=== PATIENT | female | born 1960 | race Caucasian/White ===

== ENCOUNTER → 2025-04-27 12:30 | Outpatient (CLI) | payer MEDICARE, OTHER, SELFPAY ==
--- NOTE | 2025-04-27 12:34 | DI.ECHO.S_ITS ---
[facility] : : [address] : : [place] : : [id number] : : Phone: [phone] Echocardiogram Report + + :Name: [address]AL [address] Study Date: 04/27/2025 Height: 67 in : :Hospital ReadingLocation: Weight: 147 lb : : Gender: Female BSA: 1.8 m2 : :: 1960 Age: 65 yrs BP: 142/86 mmHg: :Reason For Study: MILD ELEVATION OF CARDIAC ENZYME : :Ordering Physician: LENA, : :JAMES Performed By: David Abraham : :Referring: JAMES PAREDES : + + Interpretation Summary The ejection fraction is estimated to be 55-60%. Diastolic parameters suggest probable normal left ventricular diastolic function and normal filling pressures. The right ventricle is normal in size and function. There is mild mitral regurgitation. Pulmonary artery pressures cannot be estimated because of the lack of a measurable TR jet velocity but the IVC suggests a CVP of around 3 mmHg. Procedure: A two-dimensional transthoracic echocardiogram with color flow and Doppler was performed. The study quality was technically good. There is no prior echocardiogram noted for this patient. The patient was in normal sinus rhythm during the exam. Left Ventricle: The left ventricle is normal in size. There is normal left ventricular wall thickness. There is no ventricular septal defect visualized. The ejection fraction is estimated to be 55-60%. There are no focal wall motion abnormalities. Diastolic parameters suggest probable normal left ventricular diastolic function and normal filling pressures. Right Ventricle: The right ventricle is normal in size and function. Atria: The left atrial size is normal. Right atrial size is normal. There is no Doppler evidence for an interatrial shunt. The atrial septum is aneurysmal. Mitral Valve: The mitral valve leaflets appear normal. There is no evidence of stenosis, fluttering, or prolapse. There is mild mitral regurgitation. Aortic Valve: The aortic valve is trileaflet. The aortic valve opens well. There is no aortic valve stenosis. No aortic regurgitation is present. Tricuspid Valve: The tricuspid valve leaflets are thin and pliable. There is a trace or physiologic amount of tricuspid regurgitation. Pulmonary artery pressures cannot be estimated because of the lack of a measurable TR jet velocity but the IVC suggests a CVP of around 3 mmHg. Pulmonic Valve: The pulmonic valve is not well seen, but is grossly normal. There is no pulmonic valvular regurgitation. Great Vessels: The aortic root is normal size. The ascending aorta could not be visualized. The pulmonary artery is not well visualized, but is probably normal size. The IVC is of normal diameter and collapses greater than 50% with a sniff. This suggests a low right atrial pressure of 3 mm Hg. Pericardium/ Pleura There is no pericardial effusion. There is no pleural effusion. MMode/2D Measurements & Calculations LVIDd: 5.0 cm LVOT diam: 2.1 cm LVIDs: 3.6 cm Ao root diam: 3.2 cm FS: 28.5 % Ao Arch Diam (Prox Trans): 1.9 cm EPSS: 0.48 cm IVSd: 0.72 cm LVPWd: 0.74 cm LV jacome. diameter/BSA (cm/m^2): 2.8 LV sys. diameter/BSA (cm/m^2): 2.0 LA A2 area: 14.1 cm2 RA long axis: 4.0 cm LA A4 area: 17.1 cm2 RA area: 10.9 cm2 LA length (vol): 4.3 cm RA vol: 25.4 ml LA vol: 47.7 ml RA : 14.3 ml/m2 LA vol index: 26.9 ml/m2 IVC diam: 1.7 cm RVD1 (basal): 3.1 cm RVD2 (mid): 2.0 cm TAPSE: 3.0 cm Doppler Measurements & Calculations Ao V2 max: 117.4 cm/sec LVOT Max [place]: 90.5 cm/sec Ao V2 mean: 84.4 cm/sec LV V1 max P.3 mmHg Ao max P.5 mmHg LV V1 VTI: 24.1 cm Ao mean P.1 mmHg VAMSI(I,D): 2.9 cm2 Ao V2 VTI: 28.9 cm VAMSI(V,D): 2.7 cm2 sev ratio: 0.83 VAMSI indexed to BSA (cm^2/m^2): 1.6 MV E max israel: 64.9 cm/sec TR max israel: 199.6 cm/sec MV A max [place]: 58.5 cm/sec TR max P.9 mmHg MV E/A: 1.1 PA V2 max: 90.7 cm/sec Med Peak E' [place]: 9.2 cm/sec PA V2 mean: 66.6 cm/sec E/E' med: 7.0 PA mean P.9 mmHg Lat Peak E' [place]: 9.3 cm/sec PA pr(Accel): 46.5 mmHg E/E' lat: 7.0 E/e' average: 7.0 MV dec time: 0.19 sec SV(LVOT): 84.4 ml Reading Physician:11:19 AM
== END ==
LOC: ECHO 12:33
PROVIDERS: PCP Family Medicine; Referring Provider Family Medicine; Visit Provider Family Medicine
DX: I34.0 Nonrheumatic mitral (valve) insufficiency (principal); I10 Essential (primary) hypertension; R74.8 Abnormal levels of other serum enzymes
CPT/HCPCS: 93306

== ENCOUNTER → 2025-07-06 15:55 | Outpatient (CLI) | payer MEDICARE, OTHER, SELFPAY ==
--- NOTE | 2025-07-06 16:04 | DI.MG.S_ITS ---
MM screening mammo BI: 07/06/2025. BI-RADS: 1 CLINICAL: 65-year old female for bilateral screening mammogram. Tyrer-Cuzick lifetime risk of 8.1%. No personal or first-degree family history of breast cancer. PRIOR EXAMS: 08/04/24, 06/30/24, 06/10/23,04/03/21. MAMMOGRAPHY TECHNIQUE: 2D and 3D (tomosynthesis) digital mammographic views obtained, with additional images as needed for full coverage. Current study was also evaluated with a Computer Aided Detection (CAD) system. DENSITY C. The breasts are heterogeneously dense, which may obscure small masses. MAMMOGRAPHY FINDINGS Bilateral: No suspicious mass, asymmetry, microcalcification, or other abnormality seen. IMPRESSION: * No evidence of malignancy. RECOMMENDATIONS Bilateral * Annual screening mammography. OVERALL ASSESSMENT CATEGORY BI-RADS-1: Negative. The [employer] recommends annual screening mammography beginning at age 40 for women with average risk of breast cancer. ELECTRONICALLY SIGNED: Frank Coffey M.D. on 07/07/2025 at 08:23:31 AM PT Interpreting Station ID: [id number]
== END ==
PROVIDERS: PCP Family Medicine; Referring Provider Family Medicine; Visit Provider Family Medicine
DX: Z12.31 Encounter for screening mammogram for malignant neoplasm of breast (principal); Z13.1 Encounter for screening for diabetes mellitus; R92.333 Mammographic heterogeneous density, bilateral breasts
CPT/HCPCS: 77063; 77067